=== PATIENT | male | born 1995 | race African-American/Black ===

== ENCOUNTER 2023-09-10 06:10 | Emergency (ER) | payer OTHER ==
[2023-09-10 06:22] VITALS: O2SAT 100
--- NOTE | 2023-09-10 07:22 | ED Physician Documentation ---
PD HPI CHEST PAIN - Stated complaint Stated Complaint: CHEST PX - Chief complaint Chief Complaint: Cardiac - History obtained from History obtained from: Patient - History of Present Illness Timing - onset: Yesterday Timing - onset during: Rest Timing - details: Gradual onset, Still present (noted with movement and palpation, deep breathing and upper body/arm lifting. Not present at rest per se.) Quality: Aching, Sharp, Pain Location: Right chest (just adjacent to sternum.) Radiation: No: Neck, Back, Abdominal Improved by: Rest Worsened by: Inspiration, Movement, Palpation. No: Eating Associated symptoms: No: Shortness of air, Nausea, Vomiting, Feeling faint / dizzy, Palpitations, Cough Similar symptoms before: Has not had sx before, Other (no noted abrupt injury. Has started daily exercises inclduing pushups at work a week ago.) Review of Systems Constitutional: denies: Fever Nose: denies: Rhinorrhea / runny nose, Congestion Throat: denies: Sore throat Respiratory: denies: Cough Skin: denies: Rash, Lesions Musculoskeletal: denies: Joint pain, Joint swelling Neurologic: reports: Numbness (has had numbness in left little/ring fingers in mornings at times for month or so. Better once up and moving. Does electical work for duty at work.) PD PAST MEDICAL HISTORY - Past Medical History Past Medical History: Yes Cardiovascular: None Respiratory: None Psych: ADD/ADHD - Past Surgical History Past Surgical History: Yes HEENT: Other - Present Medications Home Medications: Ambulatory Orders Medication Instructions Recorded Confirmed Dextroamphetamine/Amphetamine 30 mg PO DAILY 09/10/23 09/10/23 [Adderall 30 mg Tablet] Ibuprofen [Motrin] 600 mg PO TID PRN #20 tab 09/10/23 - Allergies Allergies/Adverse Reactions: Allergies Allergy/AdvReac Type Severity Reaction Status Date / Time No Known Drug Allergies Allergy Verified 09/10/23 06:20 - Social History Does the pt smoke?: Yes Smoking Status: Current every day smoker Does the pt drink ETOH?: Yes ETOH Use: Wine, Beer, Liquor Does the pt have substance abuse?: No - Immunizations Immunizations are current?: Yes - POLST Patient has POLST: No PD ED PE NORMAL - Vitals Vital signs reviewed: Yes - General General: Alert and oriented X 3, No acute distress, Well developed/nourished - Cardiac Cardiac: RRR, No murmur - Respiratory Respiratory: No respiratory distress, Clear bilaterally, Other (focal chestwall tenderness right sternal border lower sternal. No rash nor sores. No crepitance. ) - Abdomen Abdomen: Soft, Non tender - Derm Derm: Normal color, Warm and dry - Extremities Extremities: No edema, No calf tenderness / cord Results - Vitals Vitals: Vital Signs - 24 hr 09/10/23 06:18 Temperature 36.0 C L Heart Rate 63 Respiratory 16 Rate Blood Pressure 137/70 H O2 Saturation 100 Oxygen O2 Source Room air - EKG (time done) 06:37 EKG releavant findings:: EKG personally interpreted by author of this note. Relevant findings are: Rate: Rate (enter#) (59) Rhythm: NSR [place]: Normal Intervals: Normal SC QRS: Normal Ischemia: Normal ST segments. No: ST elevation c/w ischemia, ST depression Compare to prior EKG: Old EKG unavailable Computer interpretation: Agree with computer - Rads (name of study) chest xray Relevant Findings:: Prelim report reviewed, EMP independent interpretation of test (no acute cardiopulmonary process) PD Medical Decision Making - ED course Complexity details: reviewed results, considered differential, d/w patient ED course: Musculoskeletal character of pain onset yesterday upon awakening and has persisted with movement, palpation, upper extremity use and deep breathing. No cough or viral illness. No abrupt injury. EKG and chest x-ray as well as vital signs are normal. He does have reproducible pain with palpation of the right sternal border. We will treat as musculoskeletal with anti-inflammatories and Tylenol. There has been physical activity and morning exercises initiated with the last week or 2 at work that includes some vigorous activity and push-ups. I will excuse him from that for the next 3 days. He also described some numbness in his fingers upon awakening over the last month or more intermittently. 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 This may be an element of a carpal tunnel type process. He can follow-up with his primary care regarding further evaluation of that. Departure - Departure Disposition: 01 Home, Self Care Clinical Impression: Anterior chest wall pain Condition: Stable Record reviewed to determine appropriate education?: Yes Instructions: ED Chest Pain Costochondritis Follow-Up: MAIKEL SCHMITT PA-C [Primary Care Provider] - Prescriptions: Ibuprofen [Motrin] 600 mg PO TID PRN #20 tab PRN Reason: Pain Comments: Your chest x-ray, EKG, vital signs are normal without any signs of heart or lung cause for your pain. It sounds musculoskeletal with most likely some inflammation at the cartilage adjacent to the sternum. We will treat this with anti-inflammatories and less upper body muscular work for several days and it should diminish and go away. Recheck if not improving well over the next few days. Ibuprofen 600 mg 3 times daily with food. Add Tylenol every 4-6 hours if needed for pain. See how this does over the next few days and recheck if not improved over 3 to 5 days. Follow-up if other symptoms develop. If you were to develop some mild cough or aches or congestion then this may be a prelude to a viral type illness. Otherwise more likely just inflammation of the muscle and cartilage. I sent prescription to the [facility]. Follow-up with your primary care regarding the numbness you get in the fingers in the mornings. They could potentially initiate some wrist splints to wear at night or some physical therapy as it may be related to some inflammation through the wrists from work use. Forms: PCP List, Activity restrictions
[2023-09-10] MEDS ORDERED: ACETAMINOPHEN 325 MG TABLET PO STA (07:38)
[2023-09-10] MEDS ORDERED: IBUPROFEN 800 MG TABLET PO STA (07:38)
[2023-09-10 07:57] VITALS: BP 142/96
--- NOTE | 2023-09-10 08:03 | XRAY Report ---
PROCEDURE: Chest 1 View X-Ray INDICATIONS: CP TECHNIQUE: One view of the chest was acquired. COMPARISON: None. FINDINGS: Surgical changes and devices: None. Lungs and pleura: No pleural effusions or pneumothorax. Lungs are clear. Mediastinum: Mediastinal contours appear normal. Heart size is normal. Bones and chest wall: No suspicious bony lesions. Overlying soft tissues appear unremarkable. IMPRESSION: No acute cardiopulmonary process. Reviewed by: Bennie Pinedo MD on 09/10/2023 8:02 AM PDT Approved by: Bennie Pinedo MD on 09/10/2023 8:02 AM PDT Station ID: [id number]
== END 2023-09-10 07:50 | disposition home or self-care (01) ==
LOC: ED 06:10
DX: R07.89 Other chest pain (principal); F17.200 Nicotine dependence, unspecified, uncomplicated
CPT/HCPCS: 71045; 93005; 99284; A9270

== ENCOUNTER 2023-10-31 10:00 | Outpatient (CLI) | payer OTHER ==
--- NOTE | 2023-10-31 10:59 | Sleep Patient Instructions ---
Sleep Center Visit Summary - Patient Visit Information Reason for Visit: Initial consult for evaluation of sleep disordered breathing and other sleep issues. - Patient Instructions Instructions Attached: Sleep Study Home Monitor Additional Instructions: You will be completing a sleep study, either an in-lab polysomnography (PSG) or home sleep study (HST). You will follow-up in the sleep care office after the sleep study is completed to hear the results and talk about therapy, if needed. You will be called by our office staff to schedule this appointment, but you may contact us with any questions. - Clinic Information Contact: [facility] [address] [place] [email or web address] T: [phone]
--- NOTE | 2023-10-31 11:05 | SLEEP CARE CONSULTATION ---
Information from patient questionnaire entered by Alfonso Singer. I have reviewed and concur with the information entered by Alfonso Singer. This document represents the service I personally performed and the decisions made by me, Erica Weston ARNP. History of Present Illness Service Date and Time: 10/31/2023 1000 Reason for Visit: New patient Chief Complaint: reports: Unrefreshed sleep, Snoring, Excessive daytime sleepiness, Observed pauses in breathing, Fatigue, Frequent awakenings at night Date of Onset: ROUGHLY 4YRS Usual bedtime: AROUND 10PM Time it takes to fall asleep: 20-60MIN Snores at night: Yes Observed to quit breathing while asleep: Yes Sleeps alone due to snoring: No Number of times waking at night: 2-4 Reasons for waking at night: reports: Other (UNKNOWN). denies: Choking, Gasping for air Toss, Turn, or Twitch while sleeping: Yes Recalls having dreams: Yes (rarely) Usually gets out of bed at: WEEKENDS 9/10AM WEEKDAYS 6AM Feels refreshed in the morning: No Morning headache: No Sleepy or fatigued during the day: Yes Ever fallen asleep while driving: Yes (drowsy driving, no accidents) Takes day naps: Yes (2 times a week for about 30 mins to 1 hour) Dreams during day naps: No Prior sleep studies: No Additional HPI information: I had the pleasure of seeing NIMESH ESCOBAR today regarding the possibility of him having a sleep disorder. His current complaints are excessive daytime sleepiness, fatigue, frequent night awakenings, observed pauses in breathing, snoring and unrefreshed sleep. He says he has had sleep problems for a long time. His girlfriend has told him that he stops breathing at night a few times. He cannot remember waking up gasping for air but does wake up "a lot" during the night and goes back to sleep. Mostly for unknown reasons but a few times for bathroom. He does snore loudly and sometimes has to sleep alone due to the snoring. He says he does not wake up feeling rested. He says his weight has gone up and down but he is currently at the heaviest he has ever been. 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 Patient is Single and lives in . Have you smoked in the past 12 months: No Alcohol use: Yes Alcohol amount and frequency: 3-5 DRINKS WEEKENDS Caffeine use: Yes Caffeine amount and frequency: 1 ALMOST DAILY Family History Family history of sleep disordered breathing: Yes Family Hx Sleep Apnea: Father: Snoring Allergies and Home Medications Known drug allergies: No Drug allergies reviewed: Yes Home medication list reviewed: Yes Allergy and home medication list: Allergies No Known Drug Allergies Allergy (Verified 10/30/23 15:30) Home Medications Medication Instructions Recorded Confirmed Last Taken Type Dextroamphetamine/Amphetamine 30 mg PO DAILY 09/10/23 10/31/23 09/07/23 History [Adderall 30 mg Tablet] Ibuprofen [Motrin] 600 mg PO TID PRN #20 tab 09/10/23 10/31/23 Unknown Rx Review of Systems Weight gain over past 5 years: 40-50, currently up Weight loss over past 5 years: 30 Cardiovascular: denies: high blood pressure Gastrointestinal: denies: heartburn Neurological: denies: headaches Psychiatric: reports: Attention Deficit Hyperactivity, anxiety Ear/Nose/Throat: reports: nasal congestion, sinus problems, dry mouth/throat, wisdom teeth removed. denies: tonsillectomy Endocrine: reports: sluggishness Musculoskeletal: reports: joint pain, back pain Physical Exam Vital signs obtained and entered by: ALFONSO Cunningham MA Blood Pressure: 120/62 (LEFT ARM) Cuff size: regular Heart Rate: 98 O2 Saturation: 66 Height: 5 ft 7 in Weight: 262 lb Body Mass Index: 41.0 BMI Classification: Morbidly Obese Neck circumference: 17 Septum: midline Mouth and throat: narrow oropharynx Soft palate: long Hard palate: normal Uvula: normal Uvula visualization: 25% Mallampati Class III Tongue: enlarged in size with teeth muro on lateral edges Tonsils: 3+/kissing Neck: normal w/o lymphadenopathy or thyromegaly Heart: regular rate and rhythm Lungs: clear bilaterally Impression and Plan 1. Suspected Obstructive Sleep Apnea-Hypopnea Syndrome, as suggested by a history of loud and irregular snoring, observed cessation of breath while asleep, frequent awakening during the night, unrefreshed sleep, cognitive impairment, and excessive daytime sleepiness. Narrow oropharynx and obesity are common predisposing factors for obstructive sleep apnea-hypopnea syndrome. I recommend proceeding to polysomnography to confirm the diagnosis and to assess severity. If the patient has significant sleep disordered breathing, a manual CPAP titration study will also be performed to find the optimal treatment pressure. I informed the patient of what the sleep studies involve and after some discussion, obtained agreement to proceed. The pathophysiology of obstructive sleep apnea-hypopnea syndrome was discussed with the patient and health risks of cardiovascular and cerebrovascular disease if not treated. Risks of drowsy driving discussed in detail and patient advised to avoid long distance driving and to seedling puller at the first sign of drowsiness. Patient agreed to plan. * Schedule polysomnography. * Avoid long distance driving or driving when feeling sleepy. * Avoid alcohol, sedative and muscle relaxant around bedtime. * Attempt to lose weight. * Review instructions provided by trained office staff on how to prepare for the sleep study. * Return for follow-up after sleep study completed. Counseling Topics: Weight loss health impact Plan: PSG/HST Visit Type: In Office Time Spent with Patient (minutes): 30 Provider Statement: I spent 100% of the Face to Face Visit with the patient with greater than 50% spent counseling the patient and coordination of care.
[2023-10-31 11:18] VITALS: BP 120/62; O2SAT 66
== END 2023-10-31 10:01 | disposition home or self-care (01) ==
LOC: SC 10:00
PROVIDERS: ATTEND Nurse Practitioner Family
DX: R06.83 Snoring (principal); G47.8 Other sleep disorders; R06.81 Apnea, not elsewhere classified; G47.10 Hypersomnia, unspecified; R53.83 Other fatigue; F90.9 Attention-deficit hyperactivity disorder, unspecified type; E66.01 Morbid (severe) obesity due to excess calories; Z68.41 Body mass index [BMI] 40.0-44.9, adult
CPT/HCPCS: 99203; 99212